=== PATIENT | female | born 1975 | race Caucasian/White ===

== ENCOUNTER 2021-05-20 08:35 | Day surgery (SDC) | payer BC, SELFPAY ==
[2021-05-13 10:44] VITALS: BMI 19.3
--- NOTE | 2021-05-19 10:56 | P.CONAN_ITS ---
Documented by User: Velia Dang NP 05/19/21 10:59 HPI - Anesthesia Eval Consult details Narrative: 45yo F for Colonoscopy Cardiac cleared s/p Mitral valve repair 12/2020, stable afib, no AOC reccomended per cardiol [facility] Past Medical History Medical History (Updated 05/13/21 @ 10:46 by Mary Ross RN) Atrial fibrillation Bipolar 2 disorder COVID-19 vaccine series completed Hypothyroid Mitral regurgitation Skin cancer, basal cell Surgical History Surgical History (Updated 05/13/21 @ 10:12 by Mary Ross RN) Hx of heart surgery Social History Social History Are you a primary manager intensive care to a significant other at home: No Do you presently have visiting nurse or other home services: No Patient Tobacco Use Status: Never used Tobacco Use of substances other than those prescribed or required for medical reasons: No Have you been hit, kicked, punched, or otherwise hurt by someone within the past year? If so, by whom?: No Are you DNR?: No Advance Directives Information Provided: Yes (will bring copy DOS) Advance Directives on File: No Recently lost weight without trying: No Eating poorly because of decreased appetite: No Nutrition Risks: No Nutritional Risk Patient : No FDLMP: 04/24/21 : No Poor oral hygiene: No Meds Allergies Allergy/AdvReac Type Severity Reaction Status Date / Time No Known Allergies [NKA] Allergy Verified 05/13/21 10:12 Home Medications Medication Instructions Recorded Confirmed Last Taken Type aspirin 81 mg tablet,delayed 81 mg PO DAILY 05/13/21 05/13/21 Unknown History release (Aspirin Low Dose) citalopram 10 mg tablet (Celexa) 10 mg PO DAILY 05/13/21 05/13/21 05/20/21 History dextroamphetamine-amphetamine ER 5 5 mg PO DAILY 05/13/21 05/13/21 Unknown History mg 24hr capsule,extend release (Adderall XR) lamotrigine 250 mg tablet,extended 250 mg PO DAILY 05/13/21 05/13/21 05/20/21 History release 24 hr (Lamictal XR) levothyroxine 88 mcg tablet 88 mcg PO DAILY 05/13/21 05/13/21 05/20/21 History lithium carbonate 600 mg capsule 600 mg PO BEDTIME 05/13/21 05/13/21 Unknown History Exam Exam Date and Time: May 19, 2021 1056 Height,Weight and Vital Signs: Height 5 ft 10 in Weight 61.235 kg Narrative Narrative: ECHO 03/2021 Normal LV systolic function, EF 55-65% No signif WMA Indeterminate LV diastolic function Nml LV size, wall thickness Normal RV systolic function. Normal RV size Surgical MV repair. Trace MR. No significant mitral stenosis Assessment and Plan Assessment Anesthesia Assessment: Chart Reviewed Documented by User: Tomasz Clemens MD 05/20/21 09:32 [facility] Past Medical History Medical History (Updated 05/13/21 @ 10:46 by Mayr Ross RN) Atrial fibrillation Bipolar 2 disorder COVID-19 vaccine series completed Hypothyroid Mitral regurgitation Skin cancer, basal cell Surgical History Surgical History (Updated 05/13/21 @ 10:12 by Mary oRss RN) Hx of heart surgery Social History Social History Are you a primary manager intensive care to a significant other at home: No Do you presently have visiting nurse or other home services: No Patient Tobacco Use Status: Never used Tobacco Use of substances other than those prescribed or required for medical reasons: No Have you been hit, kicked, punched, or otherwise hurt by someone within the past year? If so, by whom?: No Are you DNR?: No Advance Directives Information Provided: Yes (will bring copy DOS) Advance Directives on File: No Recently lost weight without trying: No Eating poorly because of decreased appetite: No Nutrition Risks: No Nutritional Risk Patient : No FDLMP: 04/24/21 : No Poor oral hygiene: No Meds Allergies Allergy/AdvReac Type Severity Reaction Status Date / Time No Known Allergies [NKA] Allergy Verified 05/13/21 10:12 Home Medications Medication Instructions Recorded Confirmed Last Taken Type aspirin 81 mg tablet,delayed 81 mg PO DAILY 05/13/21 05/13/21 Unknown History release (Aspirin Low Dose) citalopram 10 mg tablet (Celexa) 10 mg PO DAILY 05/13/21 05/13/21 05/20/21 History dextroamphetamine-amphetamine ER 5 5 mg PO DAILY 05/13/21 05/13/21 Unknown History mg 24hr capsule,extend release (Adderall XR) lamotrigine 250 mg tablet,extended 250 mg PO DAILY 05/13/21 05/13/21 05/20/21 History release 24 hr (Lamictal XR) levothyroxine 88 mcg tablet 88 mcg PO DAILY 05/13/21 05/13/21 05/20/21 History lithium carbonate 600 mg capsule 600 mg PO BEDTIME 05/13/21 05/13/21 Unknown History Exam Airway Mallampati Class: II TM Dist: >3cm Neck ROM: Full
[2021-05-20] VITALS (7 sets, daily range): BP systolic 86–107; BP diastolic 35–58; PULSE 68–75; RESP 16–20; TEMP 36.5–36.6; O2SAT 98–100
[2021-05-20 09:01] LABS: UPreg QC Valid YES; Urine Pregnancy NEGATIVE (NEGATIVE)
[2021-05-20] MEDS: Lactated Ringers 1,000 ML 100 ML IVCONT (09:17)
--- NOTE | 2021-05-20 09:40 | MHC.SHP ---
Pre-Procedural Eval Section A Date of Service: 05/20/21 The patient is an INPATIENT: No Changes since office visit: No Cold of Flu in the past 2 weeks, No New Medical Problems, No Changes in Medication and No Patient answered all questions The History & Physical has been completed within 30 days and I have reviewed it.: Yes Section B Chief Complaint: rectal bleeding Allergies: Allergies Allergy/AdvReac Type Severity Reaction Status Date / Time No Known Allergies [NKA] Allergy Verified 05/13/21 10:12 Plan I have reviewed the history and physical and performed a pertinent physical examination on my patient. No changes have occurred unless specified.
--- NOTE | 2021-05-20 10:27 | PM.OP ---
Brief Operative Note Date of Service: 05/20/21 Pre-op diagnosis: rectal bleeding Post-op diagnosis: same (colon polyps) Procedure: colonoscopy Surgeon: Nelson Bernal Anesthesia: MAC Was an Cashier Assistant used for this Procedure?: No Estimated blood loss (mL): 2 Pathology: other (polyps x2) Condition: stable Disposition: PACU
--- NOTE | 2021-05-20 11:13 | OP_ITS ---
SURGEON: Nelson Bernal MD INDICATIONS: Rectal bleeding and rectal pain. PREOPERATIVE DIAGNOSIS: POSTOPERATIVE DIAGNOSIS: PROCEDURE PERFORMED: Colonoscopy to the terminal ileum with biopsy. ESTIMATED BLOOD LOSS: COMPLICATIONS: ANESTHESIA: ASSISTANTS: SPECIMENS: MEDICATIONS: Monitored anesthesia care. DESCRIPTION OF PROCEDURE: History and physical performed. The risks and benefits of the procedure were explained to the patient. Informed consent was obtained. The patient was placed in the left lateral decubitus position. A digital rectal exam was performed and was found to be normal. The Olympus pediatric video colonoscope was introduced into the rectum and advanced to the cecum without difficulty. The cecum was identified by transillumination, palpation, and identification of the ileocecal valve. Examination was performed and the scope was removed. She tolerated the procedure well and was taken to recovery area in stable condition. FINDINGS: The terminal ileum was examined and appeared normal. The visualized colonic mucosa was within normal limits without evidence of masses, ulcers, or polyps. No colitis was identified. There were 2 small polyps measuring less than 5 mm, which were removed with biopsy forceps. These were located at 45 cm and 15 cm. Retroflexed examination showed some small internal hemorrhoids and hypertrophic anal papillae. IMPRESSION: Colon polyps. RECOMMENDATION: Follow up the biopsy results. MD JANETT Danielson/CLAUDIAL / [id number]
== END 2021-05-20 11:30 | disposition home or self-care (01) ==
PROVIDERS: Nurse Practitioner; PCP Family Medicine; Visit Provider Internal Medicine Gastroenterology
PROC: 0DJD8ZZ Inspection of Lower Intestinal Tract, Via Natural or Artificial Opening Endoscopic (ICD-10-PCS; CPT 45378; principal; 2021-05-20 09:30)
DX: K62.5 Hemorrhage of anus and rectum (principal); K63.5 Polyp of colon; K62.89 Other specified diseases of anus and rectum; K64.8 Other hemorrhoids; I48.91 Unspecified atrial fibrillation; I34.0 Nonrheumatic mitral (valve) insufficiency; F31.81 Bipolar II disorder; Z79.82 Long term (current) use of aspirin; Z79.899 Other long term (current) drug therapy
CPT/HCPCS: 45380; 81025; 88305